=== PATIENT | male | born 1950 | race Caucasian/White ===

== ENCOUNTER 2016-06-29 21:03 | Inpatient (IN) | payer MEDICARE ==
[~2016-06-29] VITALS: Ht 177.8 cm; Wt 87.9 kg
[2016-06-29 21:06] VITALS: BP 195/104; PULSE 89; RESP 16; O2SAT 97
--- NOTE | 2016-06-29 22:07 | ED.REPORT ---
HPI-Neurologic Deficit Date of Service Jun 29, 2016 ED Provider: MD Rodri This is a 65 year old male with a history of hypertension and DM presenting to the emergency department via EMS due to problem speaking that occurred just prior to arrival. Patient was eating dinner when he suddenly was unable to speak and had left arm numbness. This episode lasted approximately twenty seconds and was preceded by a "really bad" headache that is now resolved. Patient states he has been tapering off of his blood pressure medications and reports intermittent headaches in the last few days. Pt states the headache worsened significantly today which was followed by the episode. The headache resolved after the episode. Pt was at baseline after the episode. Pt reports some L eye pain at this time. He denies slurred speech or LOC. Pt denies headache, chest pain, nausea, vomiting, diaphoresis, numbness, tingling facial droop, or slurred speech at this time. No ASA today. Nursing Notes Stated Complaint: POSS STROKE Chief Complaint: Neuro Symptoms/ Deficits Nursing Notes Reviewed: Yes Allergies: Coded Allergies: morphine (Verified Allergy, Intermediate, 06/29/16) General Time Seen by Provider: 22:13 Chief Complaint Numbness arm... (Left) Hx Obtained From: Patient Arrived By: Walk-in Sudden in Onset?: Yes Symptom Duration: Since onset Severity: Current: No pain currently Pertinent Negative: Pt denies other symptoms Recent Healthcare: No recent doctor visit, No recent hospitalization Similar Sx Previous: No Risk Factors NIH Stroke Scale Level of Consciousness: Alert and responsive (0) Ask Month & Age: Both questions right (0) Open/Close Eyes/Hand Towerman: Performs both tasks (0) Horizontal EO Movements: None (0) Visual Contreras: No visual loss (0) Facial Palsy: Normal symmetry (0) Right Arm Motor Drift (10s): No drift 10 sec (0) Left Arm Motor Drift (10s): No drift 10 sec (0) Right Leg Motor Drift (5s): No drift 5 sec (0) Left Leg Motor Drift (5s): No drift 5 sec (0) Limb Ataxia FNF/Heel-Kaplan: No ataxia (0) Sensation (Arms/Legs/Face): No sensory loss (0) Language Aphasia: No aphasia, normal (0) Dysarthria: No dysarthria, normal (0) Extinction/Inattention: No exctinct/inattent (0) NIHSS Score: 0 Time NIHSS Performed: 22:23 Date NIHSS Performed: Jun 29, 2016 Past Medical History Past Medical History Reports: Hypertension Ambulatory Status Independent Review of Systems Constitutional: Denies: Chills, Fever Respiratory: Denies: Non-productive cough, Shortness of breath Cardiovascular: Denies: Chest pain GI: Denies: Nausea, Vomiting Neurologic: Reports: Headache, Numbness, Unable to speak Complete sys rev & neg: except as marked. Physical Exam Initial Vital Signs Vital Signs (First) Date Time Temp Pulse Resp B/P Pulse Ox O2 Delivery O2 Flow Rate FiO2 06/29/16 21:06 37 89 16 195/104 97 Room Air Initial VS: Reviewed ENT: Mucous membranes moist, Conjunctiva normal, No scleral icterus Neck: Supple, Non-tender, Full range of motion Abdomen / GI: Soft, Non-tender, No guarding, No rebound, No distention Extremities: Vascular intact, Neuro intact, No swelling, No tenderness Skin: Warm, Dry, No cyanosis Psychiatric: Mood/affect normal, Behavior normal, Normal thought content General/Constitutional: Awake, Alert Head / Eyes: Normocephalic, PERRL, EOMI, No nystagmus Respiratory / Chest: Breath sounds NL, Breath sounds = bilat, No respiratory distress, No rales, No rhonchi, No wheezing Cardiovascular: Heart rate NL, Regular rhythm, Heart sounds NL, Peripheral circulation NL Neurologic: Oriented X3, Speech NL, No motor deficits, No sensory deficits, CN II - XII intact, Reflexes equal bilat, Cerebellar NL Interpretation & Diagnostics CT HEAD IMPRESSION: No acute intracranial findings. Radiologist: Rodri Armas MD Lab Results Interpretation Result Diagram: 06/29/16 2217 06/29/16 2217 Test 06/29/16 22:17 White Blood Count 5.3th/mm3 (3.8-10.1) Red Blood Count 5.02mil/mm3 (4.40-5.80) Hemoglobin 15.6g/dL (13.8-17.2) Hematocrit 45.6% (41.0-50.0) Mean Corpuscular Volume 90.8fL (81-100) Mean Corpuscular Hemoglobin 31.1pg (27.0-35.0) Mean Corpuscular Hemoglobin Concent 34.2% (32.0-37.0) Red Cell Distribution Width 12.1% (12.3-15.4) Platelet Count 311bil/L (150-400) Neutrophils (%) (Auto) 55.5% (40-74) Lymphocytes (%) (Auto) 27.6% (14-46) Monocytes (%) (Auto) 14.2% (4-12) Eosinophils (%) (Auto) 1.9% (0-5) Basophils (%) (Auto) 0.6% (0-3) Prothrombin Time 10.2sec (8.1-12.5) Prothromb Time International Ratio 0.95ratio Activated Partial Thromboplast Time 25.8sec (22.8-33.0) Sodium Level 136mEq/L (134-144) Potassium Level 3.5mEq/L (3.5-5.2) Chloride Level 95mEq/L (97-108) Carbon Dioxide Level 23mmol/L (18-29) Blood Urea Nitrogen 10mg/dL (8-27) Creatinine 0.78mg/dL (0.76-1.27) Estimat Glomerular Filtration Rate 106mL/min (>59) Glucose Level 112mg/dL (60-99) Calcium Level 9.8mg/dL (8.5-10.1) Magnesium Level 1.9mg/dL (1.6-2.6) Total Bilirubin 0.5mg/dL (0.0-1.2) Aspartate Amino Transf (AST/SGOT) 22U/L (0-50) Alanine Aminotransferase (ALT/SGPT) 18U/L (0-44) Alkaline Phosphatase 65U/L (25-160) Troponin T 0.010ug/L (0.0-0.011) Total Protein 7.9g/dL (6.4-8.4) Albumin 4.4g/dL (3.4-5.0) Hold Price Top Tube Received (Received) ECG Interpretation ECG Interpretation: NSR at a rate of [address] elevation Flattened t-wave in lead 3 T-wave inversion in AVR AND V1 Time: 22:23 Interpreted by: ED physician Re-Eval/Medical Decision Med Decision/Clinical Course 65-year-old male with past medical history of hypertension who is not currently taking medications here with headache and transient dysphagia and left arm numbness and weakness. Differential diagnosis includes but is not limited to TIA versus electrolyte abnormality versus hypertensive emergency versus stroke. Patient's symptoms have completely resolved, so I do not feel he is having a stroke. CT head is normal. Electrolytes are normal. Patient is hypertensive, however, given his normal CT head, I feel it is safer to allow for permissive hypertension. I offered him outpatient follow-up for TIA, however, he has elected to stay inpatient and have workup in-house. He has been accepted by the hospitalist. Re-Evaluation/Progress : Time of Eval: 23:29 Re-Evaluation/Progress Note: Discussed lab, imaging results and plan for admission. All questions addressed. Consultation : Referral / Consult Name: Radha Mckeon DO Consulted With: Hospitalist Call Returned at: 00:18 Retanned Leather Roller: Accepts admit Counseled Regarding: Diagnosis, Lab results, Need for follow-up, Need for admission Discharge & Departure Impression: Primary Impression: TIA (transient ischemic attack) Transient cerebral ischemia type: unspecified Qualified Code: G45.9 - Transient cerebral ischemic attack, unspecified Disposition: ADMITTED TO HOSPITAL Discharge Condition All VS Reviewed: Yes Condition: Stable Scribe Attestation Portions of this note were transcribed by Ranjeet Rodrigues. I, Dr. Mace personally performed the history, physical exam and medical decision-making; I reviewed and confirmed the accuracy of the information in the transcribed note. Signed by: mindy Redman. 06/29/2016, 03:00. Kylie Mace MD Jun 29, 2016 22:07 RANJEET RODRIGUES Jun 29, 2016 22:22
[2016-06-29 22:31] LABS: Mean Corpuscular Hemoglobin 31.1 pg (27.0-35.0); Mean Corpuscular Volume 90.8 fL (81-100); NEUTROPHILS % (AUTO) 55.5 % (40-74); Platelet Count 311 bil/L (150-400)
[2016-06-29 22:32] LABS: BASOPHILS % (AUTO) 0.6 % (0-3); EOSINOPHILS % (AUTO) 1.9 % (0-5); MONOCYTES % (AUTO) 14.2 % (4-12)
[2016-06-29 22:52] LABS: INR 0.95 ratio
[2016-06-29 23:02] LABS: Magnesium 1.9 mg/dL (1.6-2.6); TROPONIN T 0.01 ug/L (0.0-0.011)
[2016-06-30] VITALS (10 sets, daily range): BP systolic 166–199; BP diastolic 76–109; PULSE 65–88; RESP 15–19; O2SAT 96–98
[2016-06-30] MEDS ORDERED: Alum-Mag Hydrox-Simeth 30 mL Suspension PO PRN (01:10)
[2016-06-30] MEDS ORDERED: Polyethylene Glycol (PEG) 17 Gm Powder PO PRN (01:10)
[2016-06-30] MEDS ORDERED: Ondansetron 2 mg/mL 2 mL Inj IVPUSH PRN (01:10)
--- NOTE | 2016-06-30 01:20 | PCM.HPMED ---
Subjective Date of Service Jun 30, 2016 Primary Provider: Admitting Physician: Radha Mckeon DO Primary Care Physician: Verónica Attending Physician: Radha Mckeon DO Admit Status: From the Emergency Department Chief Complaint: Numbness of left arm, inability to speak. History of Present Illness: 65 y/o M with a history of HTN and pre-diabetes who presented to the ED with the complaint of numbness in his left arm and inability to speak while having dinner with his , just prior to arrival. He denies similar symptoms in the past and states that the episode lasted less than 30seconds and was preceded by a severe headache. He states that he has been under a lot of stress lately due to job changes and recent of his son. He states that his son was shot just before [place], after which he reports drinking heavily and 'staying drunk' for a couple of months. He has stopped drinking heavily, made dietary and lifestyle changes and he states that his blood pressure improved. This led him to self-discontinued his anti-hypertensive medication as well as his metformin. He reports home blood pressure readings consistently in the 130s systolic and 80s-90s diastolic for a couple of weeks. He only resumed his medication about 2 weeks ago when he noticed his blood pressure starting climbing again. He states that he was only borderline diabetic so he stopped his metformin as well. He does not remember when his A1c was last checked. Of note, several weeks ago he states that he developed severe nausea and generally felt terrible upon waking one morning. This episode was accompanied by a headache and he reports intermittent headaches since that time. In the ED: NIHSS zero, vitals 37.0C, BP 195/104, pulse 89, RR 16, O2 sats 97% on room air. Labs: wbc 5.3, hgb 15.6, hct 45.6, plts 311. Sodium 136, potassium 3.5, chloride 95, bicarb 23, BUN 10, creatinine 0.78, serum glucose 112. ECG showing normal sinus rhythm with a rate of 77, no ST elevation, and non- specific Twave changes. Troponin is negative x1. CT head no acute intracranial findings. Review of Systems: A comprehensive review of systems was conducted with the patient and found to be negative except as above in the History of Present Illness. Allergies Coded Allergies: morphine (Verified Allergy, Intermediate, 06/29/16) Home Medications Med reconciliation pending at time of admission. PMH Hypertension Pre-diabetes Surgical History Inguinal hernia repair x2 Back surgery Family History Father- at age 79. hx of 'enlarged heart, diabetes and pancreatic cancer. 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 Reports period of heavy drinking for 2-3months, following his sons last February. 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 Lives in [place], lives in [place]. Exam Vital Signs Vital Sign - Last Date Time Temp Pulse Resp B/P Pulse Ox O2 Delivery O2 Flow Rate FiO2 06/29/16 21:06 37 89 16 195/104 97 Room Air Exam General: No acute distress, well-developed, well-nourished, appropriately interactive HEENT: Normocephalic, atraumatic. External ears without defect. PERRLA, Anicteric sclerae, moist conjunctivae, and no lid lag. Neck: Supple, nontender. No jugular venous distension. No bruits. Cardiovascular: Regular rate and rhythm with no murmurs, rubs, or gallops appreciated Pulmonary: Clear to auscultation bilaterally with no crackles, wheezes, or rhonchi. Abdomen: Bowel tones present. Soft, nontender, nondistended. No hepatosplenomegaly or masses Extremities: No clubbing, cyanosis, edema, or lymphadenopathy appreciated. Skin: Normal temperature, turgor, and texture; no rash or ulcerations. Neurological: CN II-XII grossly intact, no focal motor/sensory deficits. Normal muscle strength, tone, and bulk. Psychiatric: Normal mood and affect. Alert and oriented to person, place, and time. Lab and Diagnostics Labs Laboratory Tests Test 06/29/16 22:17 White Blood Count 5.3th/mm3 (3.8-10.1) Red Blood Count 5.02mil/mm3 (4.40-5.80) Hemoglobin 15.6g/dL (13.8-17.2) Hematocrit 45.6% (41.0-50.0) Mean Corpuscular Volume 90.8fL (81-100) Mean Corpuscular Hemoglobin 31.1pg (27.0-35.0) Mean Corpuscular Hemoglobin Concent 34.2% (32.0-37.0) Red Cell Distribution Width 12.1% (12.3-15.4) Platelet Count 311bil/L (150-400) Neutrophils (%) (Auto) 55.5% (40-74) Lymphocytes (%) (Auto) 27.6% (14-46) Monocytes (%) (Auto) 14.2% (4-12) Eosinophils (%) (Auto) 1.9% (0-5) Basophils (%) (Auto) 0.6% (0-3) Prothrombin Time 10.2sec (8.1-12.5) Prothromb Time International Ratio 0.95ratio Activated Partial Thromboplast Time 25.8sec (22.8-33.0) Sodium Level 136mEq/L (134-144) Potassium Level 3.5mEq/L (3.5-5.2) Chloride Level 95mEq/L (97-108) Carbon Dioxide Level 23mmol/L (18-29) Blood Urea Nitrogen 10mg/dL (8-27) Creatinine 0.78mg/dL (0.76-1.27) Estimat Glomerular Filtration Rate 106mL/min (>59) Glucose Level 112mg/dL (60-99) Calcium Level 9.8mg/dL (8.5-10.1) Magnesium Level 1.9mg/dL (1.6-2.6) Total Bilirubin 0.5mg/dL (0.0-1.2) Aspartate Amino Transf (AST/SGOT) 22U/L (0-50) Alanine Aminotransferase (ALT/SGPT) 18U/L (0-44) Alkaline Phosphatase 65U/L (25-160) Troponin T 0.010ug/L (0.0-0.011) Total Protein 7.9g/dL (6.4-8.4) Albumin 4.4g/dL (3.4-5.0) Hold Price Top Tube Received (Received) Result Diagram: 06/29/16221606/29/162216 X-Rays, CTs and MRIs CT HEAD w/o contrast (final report, pending at time of admission) IMPRESSION: No acute intracranial findings. Radiologist: Rodri Armas MD Assessment & Plan 65 y/o M with a history of HTN and pre-diabetes who presented to the ED with the complaint of left arm numbness and transient inability to speak just prior to arrival. Admitted for further evaluation and management of TIA and hypertension. 1. TIA, present on admission. Improving -Hx of hypertension, self-discontinuation of BP meds, intermittent headaches for past several days. -Pt hypertensive at presentation, BP 195/104. Reports episode today preceded by more severe headache and lasted approx 20secs. -in the ED: CT head w/no acute intracranial findings, NIHSS 0, resolution of symptoms. -lipid panel pending, consider initiating statin pending results -permissive hypertension, treat only if > 220 systolic or 120 Diastolic -continue aspirin, 325mg 2. Hypertension, present on admission. Active. -BP significantly elevated at presentation, 195/104 with pulse 89. -ECG showing NSR, rate 77, no ST elevation and non-specific T-wave changes. -Troponin neg x1 -permissive hypertension due to #1. 3. Hx of pre-diabetes, present on admission. Ongoing - last HbA1c unknown. Pt reports self discontinued of metformin. - HbA1c pending PRN: Acetaminophen-fever/headache/mild/moderate pain Antiemetics, as needed Bowel regimen, as needed. Disposition: Patient is admitted under observation status with expected length of stay less than 2 midnights due to severity of presenting symptoms and risk of adverse event. Pain Evaluation: Adequate Pain Control VTE Prophylaxis Indicated: Meets Criteria for Anticoag Therapy VTE Prophylaxis: Sub-Q Heparin (Unfractionated) Resuscitation Status: CPR: Attempt Resuscitation Attending Statement The patient was seen and examined together with house staff on 06/30/2016 and I agree with the history, exam and plan as outlined in the note above. Sofia Ray DO Jun 30, 2016 01:20 Radha Mckeon DO Jun 30, 2016 04:45 Sofia Ray DO Jun 30, 2016 01:20 Disposition: Patient is admitted under observation status with expected length of stay less than 2 midnights due to severity of presenting symptoms and risk of adverse event. Pain Evaluation: Adequate Pain Control VTE Prophylaxis Indicated: Meets Criteria for Anticoag Therapy VTE Prophylaxis: Sub-Q Heparin (Unfractionated) BeSofia espitia DO Jun 30, 2016 01:20 PRN: Acetaminophen-fever/headache/mild/moderate pain Antiemetics, as needed Bowel regimen, as needed. Disposition: Patient is admitted under observation status with expected length of stay less than 2 midnights due to severity of presenting symptoms and risk of adverse event. Pain Evaluation: Adequate Pain Control VTE Prophylaxis Indicated: Meets Criteria for Anticoag Therapy VTE Prophylaxis: Sub-Q Heparin (Unfractionated) Sofia Ray DO Jun 30, 2016 01:20 CODE STATUS: FEN: IVF: GI Prophylaxis: DVT Prophylaxis: Sub-q Heparin, 5,000units Q8h PRN: Acetaminophen-fever/headache/mild/moderate pain Antiemetics, as needed Bowel regimen, as needed. Disposition: Patient is admitted under observation status with expected length of stay less than 2 midnights due to severity of presenting symptoms and risk of adverse event. Sofia Ray DO Jun 30, 2016 01:20
[2016-06-30] MEDS ORDERED: OXYC1TAB24 PO (02:17)
--- NOTE | 2016-06-30 06:42 | NUR ---
Admit Patient arrived from ED at 0130. Patient A&OX3.Report received from Zulay STEVENS. Vitals stable. Patient up independent in room. Stable on feet. Patient C/O headache.
--- NOTE | 2016-06-30 07:55 | NUR ---
Off Unit Patient off floor to MRI via W/C.
--- NOTE | 2016-06-30 08:04 | DRSVH ---
PROCEDURE: CT BRAIN WITHOUT CONTRAST ([id number]) INDICATIONS: TIA TECHNIQUE: Noncontrast 4.5 mm thick angled axial sections acquired from the foramen magnum to the vertex, with c oronal reformats. COMPARISON: None. FINDINGS: Image quality: Excellent. CSF spaces: Basal cisterns are patent. No extra-axial fluid collections. The ventricles are symmet tete in size and shape. Brain: No intracranial bleeds or masses. There is mild cerebral volume loss for age, with resultant ventricular and sulcal prominence. There are mild periventricular and deep white matter chronic sma ll vessel ischemic changes. There is intracranial internal carotid artery atherosclerosis. Skull and face: Calvarium and visualized facial bones appear intact, without suspicious lesions. Sinuses: Visualized sinuses and mastoids are clear. IMPRESSION: 1. No acute intracranial abnormalities. 2. Mild cerebral volume loss and chronic microvascular ischemic changes. No significant discrepancy with the promotions executive producer radiology preliminary report. Dictated by: Maldonado Fontenot M.D. on 06/30/2016 at 8:02 Approved by: Maldonado Fontenot M.D. on 06/30/2016 at 8:02
--- NOTE | 2016-06-30 08:23 | NUR ---
Back on Unit Patient back on floor from MRI via W/C.
[2016-06-30] MEDS: Heparin 5,000 Unit/mL Inj SUBQ SCH ×2 (08:32→16:45)
--- NOTE | 2016-06-30 08:41 | DRSVH ---
PROCEDURE: MRI BRAIN WITHOUT CONTRAST ([id number]) INDICATIONS: TIA, transient episode of numbness in left arm and inability to speak TECHNIQUE: Non-contrast axial T1 spin echo, axial T2 fast spin echo, sagittal and axial FLAIR, coronal T2 fast s pin echo, axial gradient echo, axial diffusion and ADC through the brain. COMPARISON: None. FINDINGS: Image quality: Excellent. CSF spaces: Ventricles appear symmetric in size and shape. Basal cisterns are patent. No extra-axi al fluid collections. Brain: No intracranial bleeds or mass effects. There is cerebral volume loss for age. There are mi ld periventricular and deep white matter chronic small vessel ischemic changes. Brainstem appears no rmal. Small, punctate focus of restricted diffusion noted in the posterior right frontal lobe compati ble with acute infarct. No chronic ischemic insults. Normal intravascular flow voids are present. Skull and face: Calvarial bone marrow is normal in signal. Orbits are normal. Sinuses: Sinuses are clear. Fluid signal noted in the right mastoid air cells. IMPRESSION: 1. Small, acute, lacunar infarct involving the posterior right frontal lobe. 2. Mild, diffuse volume loss. 3. Mild periventricular and subcortical white matter chronic microvascular ischemic changes. 4. No intracranial hemorrhage. 5. Fluid signal in the right mastoid air cells. Please correlate with physical findings to differenti ate serous fluid from an inflammatory process. Dictated by: Radha Davila MD, PhD on 06/30/2016 at 8:30 Approved by: Radha Davila MD, PhD on 06/30/2016 at 8:38
[2016-06-30] MEDS ORDERED: LOSA1TAB69 PO (09:31)
--- NOTE | 2016-06-30 10:42 | NUR ---
Silas quispe MD Notified MRI report available. Also, requested a PT consult. Awaiting response.
--- NOTE | 2016-06-30 10:47 | NUR ---
Swallowing and Cognitive Evaluations completed. Please go to "Notes" then click on "Assessments and Notes" (bottom left corner of screen). Then select appropriate discipline tab on top of screen.
--- NOTE | 2016-06-30 11:12 | NUR ---
Case Management: JORGE given and explained to pt. Erna TRUJILLO RN
--- NOTE | 2016-06-30 11:30 | DRSVH ---
Formerly [facility] [address] [place] [address] Echocardiogram Report Name: BK MONTEZ DStudy Date: 06/30/2016 Height: 70 in Hospital Exam Location: [facility] Weight: 186 lb Gender: Male BSA: 2.0 m2 : 1950 Age: 65 yrs BP: 166/87 mmHg Reason For Study: TIA History: Hypertension Ordering Physician: Performed By: [facility] Interpretation Summary The left ventricle is normal in size. The ejection fraction is estimated to be 60-65%. There is no LV thrombus. The right ventricle is at the upper limits of normal in size. The right ventricular systolic function is normal. There is discrete calcified nodular thickening of the right and non coronary cusp. No aortic regurgitation is present.There is no aortic valve stenosis. There is trace tricuspid regurgitation. Right ventricular systolic pressure is estimated to be 25 mmHg plus the clinically estimated CVP which cannot be estimated on this exam. The ascending aorta is mildly enlarged. The aortic arch is mild-moderately enlarged. Procedure: A two-dimensional transthoracic echocardiogram with color flow and Doppler was performed. The study quality was technically adequate. The subcostal views were difficult to obtain and are suboptimal in quality. There is no prior echocardiogram noted for this patient. The patient was in normal sinus rhythm during the exam. Left Ventricle: The left ventricle is normal in size. There is mild concentric left ventricular hypertrophy. Proximal septal thickening is noted. There is no echo evidence for significant left ventricular outflow tract obstruction. There is no thrombus. The ejection fraction is estimated to be 60-65%. There are no focal wall motion abnormalities. Spectral Doppler of the mitral valve is reversed, with an E/A wave ratio < 1.0. Right Ventricle: The right ventricle is at the upper limits of normal in size. The right ventricular systolic function is normal. Atria: Both atria are normal in size. There is no Doppler evidence for an interatrial shunt. Mitral Valve: There is mild mitral annular calcification. The mitral valve leaflets are slightly calcified. There is trace mitral regurgitation. Aortic Valve: The aortic valve is mildly calcified. The aortic valve is trileaflet. There is discrete calcified nodular thickening of the right and non coronary cusp. There is no aortic valve stenosis. No aortic regurgitation is present. Tricuspid Valve: The tricuspid valve is not well visualized, but is grossly normal. Right ventricular systolic pressure is estimated to be 25 mmHg plus the clinically estimated CVP which cannot be estimated on this exam. There is trace tricuspid regurgitation. Pulmonic Valve: The pulmonic valve is not well seen, but is grossly normal. There is no pulmonic valvular regurgitation. Great Vessels: The aortic root is normal size. The ascending aorta is mildly enlarged. The aortic arch is mild-moderately enlarged. The IVC has a measurement of 20 mm. Inspiratory collapse of the IVC is difficult to estimate given the limited visibility. Pericardium/ Pleura There is an anterior echo-free space consistent with a fat pad. There is no pericardial effusion. MMode/2D Measurements & Calculations LVIDd: 4.9 cm LA dimension: 4.2 cm RA long axis LVOT diam: 2.3 cm LVIDs: 2.9 cm Ao root diam FS: 40.4 % LA A2 area: 21.9 cm RA area EPSS: 0.81 cm LA A4 area: 17.5 cm Aortic Jxn: 3.1 cm IVSd: 1.4 cm LA length (vol) : 16.0 cm asc Aorta Diam LVPWd: 1.2 cm RA vol LA vol: 64.7 ml : 39.4 ml Ao Arch Diam (Prox LA vol index RA Trans): 3.8 cm : 19.4 mm2 IVC diam: 2.0 cm LV rodrigues. diameter/BSA LV sys. diameter/BSA RVD1 (basal) TAPSE: 2.4 cm (cm/m^2): 2.4 (cm/m^2): 1.4 Doppler Measurements & Calculations Ao V2 max MV E max grey MV E/A: 0.55 TR max grey : 141.9 cm/sec : 46.5 cm/sec Med Peak E' Grey : 248.6 cm/sec Ao max PG MV A max grey TR max PG : 8.1 mmHg : 84.6 cm/sec E/E' med: 10.9 : 24.7 mmHg Ao mean PG MV P1/2t: 78.8 msec Pulm A Revs Dur PA V2 max : 103.1 cm/sec LVOT Max Grey MV A dur: 0.12 sec PA mean PG : 92.6 cm/sec PA Accel Time MARANDA(I,D): 3.0 cm : 0.14 sec sev ratio MV dec time MV P1/2t max grey Ao V2 mean LV V1 max PG : 0.26 sec : 108.8 cm/sec MVA(P1/2t): 2.8 cm2 Ao V2 VTI: 27.7 cm LV V1 VTI MARANDA(V,D): 2.7 cm2 : 20.1 cm PA V2 mean MARANDA indexed to BSA Pulm A Revs Dur - MV A : 70.4 cm/sec (cm^2/m^2): 1.5 Dur: -0.01 msec Reading Physician:RUPALI
--- NOTE | 2016-06-30 11:52 | NUR ---
Evaluation completed. Please go to "Notes" then click on "Assessments and Notes" (bottom left corner of screen). Then select appropriate discipline tab on top of screen.
--- NOTE | 2016-06-30 12:23 | NUR ---
Case Management: IMM given and explained to pt. Erna TRUJILLORN
[2016-06-30] MEDS: DULoxetine 20 mg DR Capsule PO SCH (14:17)
--- NOTE | 2016-06-30 15:51 | NUR ---
Social Work-initial assessment/ readiness for discharge: Data:See initial assessment. Pt is a 65 y/o male who was admitted on 06/30/16 for TIA per H&P. Pt's insurance is [facility] and PCP is Dr. Chaney in [place]. EMR Reviewed. Pt's readmission score is 1. SW met with pt at bedside to discuss discharge planning, SW role explained. Pt is alert and oriented x3. Pt resides at home with his Sara Oliver [phone] in [place] where he remains independent with ADLs. Pt does not use any DME and drives. Pt has no HH or SNF history. Pt has no long-term care insurance or VA benefits. SW discussed DPOA/ advanced directive pt has not completed this paperwork, SW provided pt with copy. PT and ST have cleared pt for home. SW discussed PCP, pt states that he will be able to get into see his PCP and will be able to schedule an appointment himself. Pt declined any needs for SW assisting with this. SW provided pt with phone number and plan on white board in room. Pt's family to provide transport home. No anticipated discharge needs. SW will continue to follow if needs arise. Assessment:Pt who is independent at baseline. Plan:Pt to discharge home when medically stable via POV. No anticipated discharge needs. SW will continue to follow if needs arise. JODY Hayden Addendum: 06/30/16 at 1614 by ALEX SERRATO SS Amended: Links added.
[2016-06-30] MEDS: oxyCODONE-Acetamin 5-325 mg Tablet PO PRN ×2 (16:46→22:44)
--- NOTE | 2016-06-30 16:47 | NUR ---
Pain Patient reported 8/10 chronic pain. 1 tab Percocet given. Denies nausea at this time. Patient independent in the room. Call light and tray table within reach. Will continue to monitor patient hourly.
--- NOTE | 2016-06-30 20:39 | NUR ---
HTN Page out to MD for critical b/p of 199/109. Pt asymptomatic. Waiting for call back.
--- NOTE | 2016-06-30 20:45 | NUR ---
B/P Spoke with Dr Mckeon about b/p. Stroke parameter is 220/120. Will recheck b/p in one hour and call MD if still elevated.
[2016-07-01] VITALS (10 sets, daily range): BP systolic 157–204; BP diastolic 91–109; PULSE 66–78; RESP 14–20; O2SAT 71–98
[2016-07-01] MEDS: Heparin 5,000 Unit/mL Inj SUBQ SCH ×3 (01:12→17:02)
[2016-07-01] MEDS: oxyCODONE-Acetamin 5-325 mg Tablet PO PRN ×4 (01:13→18:22)
--- NOTE | 2016-07-01 07:00 | NUR ---
NOC PT b/p remains very hypertensive, but below stroke parameter. PT c/o h/a when b/p high. Tylenol and percocet are helpful with pain. PT up ad jose in room. PT is anxious at times. He has tremors felt fingertip to fingertip, was a little diaphoretic. Asked again about etoh intake and pt denies excessive drinking, but does drink wine every night. WIll CTM for possible etoh w/d. PT planning for d/c today, but is anxious about how elevated b/p has been. Reinforced stroke teaching about allowing adequate perfusion. Pt was a little reassured by this.
[2016-07-01] MEDS ORDERED: Labetalol 5 mg/mL 4 mL Inj IVPUSH ONE (07:20)
[2016-07-01 07:49] LABS: Mean Corpuscular Hemoglobin 31.1 pg (27.0-35.0); Mean Corpuscular Volume 87.5 fL (81-100)
[2016-07-01] MEDS: DULoxetine 20 mg DR Capsule PO SCH (08:16)
[2016-07-01] MEDS ORDERED: 0.9% Sodium Chloride 1,000 ML IV ONE (15:35)
--- NOTE | 2016-07-01 18:04 | PCM.PNMED ---
Subjective Date of Service Jul 01, 2016 Subjective Patient was seen and examined at bedside today. Patient denies any chest pain, shortness of breath, nausea, vomiting, diarrhea, headache Overnight events: Overnight the patient did have several hypertensive episodes and then nighttime attending was contacted no medications were given. Exam Vital Signs Vital Sign - Last Date Time Temp Pulse Resp B/P Pulse Ox O2 Delivery O2 Flow Rate FiO2 07/01/16 16:29 36.7 73 18 167/97 95 Room Air Intake and Output 06/30/16 06/30/16 07/01/16 Cumulative From/Thru 15:00 23:00 07:00 06/29/16 21:06 - 07/01/16 06:44 Intake Total 1836 ml 375 ml 2261 ml Output Total 800 ml 950 ml 1950 ml Balance 1036 ml -575 ml 311 ml Intake Oral 1836 ml 375 ml 2261 ml Output Urine Total 800 ml 950 ml 1950 ml # Bowel Movements 0 0 Exam Physical Exam: GEN: Patient was awake, alert, responding appropriately to questions HEENT: Pupils equal round and reactive to light, extraocular eye muscles intact , Neck soft supple, trachea midline, 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 CV: +S1/S2, regular rate and rhythm, no murmurs auscultated Respiratory: CTAB, no wheezes, rales, rhonchi GI: +bowel sounds x4, soft, compressible, nontender to palpation EXT: no clubbing, cyanosis, edema 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 Radiologist: Rodri Armas MD IMPRESSION: 1. Small, acute, lacunar infarct involving the posterior right frontal lobe. 2. Mild, diffuse volume loss. 3. Mild periventricular and subcortical white matter chronic microvascular ischemic changes. 4. No intracranial hemorrhage. 5. Fluid signal in the right mastoid air cells. Please correlate with physical findings to differentiate serous fluid from an inflammatory process. Dictated by: Radha Davila MD, PhD on 06/30/2016 at 8:30 Approved by: Radha Davila MD, PhD on 06/30/2016 at 8:38 Assessment & Plan 65 y/o M with a history of hypertension and pre-diabetes who presented to the ED with the complaint of left arm numbness and transient inability to speak just prior to arrival. Admitted for further evaluation and management of TIA and hypertension. CVA, present on admission. Improving -MRI shows a small acute lacunar infarct involving the posterior right frontal lobe -Lipid panel within normal limits - Start lisinopril 40 mg daily and Norvasc 10 mg daily, hydralazine 25 mg 3 times a day -Focus on blood pressure control -Continue aspirin 325 mg daily -Plavix 75 mg daily -Outpatient follow-up appointment with neurology Hypertension, present on admission. Active. -Blood pressure is improving currently 167/97 -Continue tight blood pressure control -Patient did receive a one-time dose of 20 IV labetalol - Start lisinopril 40 mg daily and Norvasc 10 mg daily, hydralazine 25 mg 3 times a day Hyponatremia -Sodium 128 -IV fluid bolus 1 L -Follow up in the morning Diabetes present on admission. Ongoing - last HbA1c unknown. Pt reports self discontinued of metformin. - HbA1c 6.3 -Restart metformin 500 mg twice a day Diet: Diabetic DVT prophylaxis: SCDs PRN: Acetaminophen-fever/headache/mild/moderate pain Antiemetics, as needed Bowel regimen, as needed. Disposition: At this time the patient's blood pressure still remains labile. Once the patient's blood pressure is stable he will be able to be discharged home and follow-up with neurology. VTE Prophylaxis: Sub-Q Heparin (Unfractionated) Resuscitation Status: CPR: Attempt Resuscitation Tatyana Mckenzie DO Jul 01, 2016 18:04
--- NOTE | 2016-07-01 18:41 | NUR ---
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 speech is clear and spontaneous, no swallowing problems.
--- NOTE | 2016-07-01 23:09 | NUR ---
Education Pt given stroke education booklet. Reviewed new medications (lipitor and hydralazine) and purpose of each of them. Pt verbalized understanding
[2016-07-02] VITALS (9 sets, daily range): BP systolic 127–159; BP diastolic 68–85; PULSE 65–79; RESP 20; O2SAT 96–98
[2016-07-02] MEDS: oxyCODONE-Acetamin 5-325 mg Tablet PO PRN ×3 (02:33→17:15)
[2016-07-02 07:57] LABS: Mean Corpuscular Hemoglobin 30.9 pg (27.0-35.0); Mean Corpuscular Volume 89.3 fL (81-100)
[2016-07-02] MEDS: DULoxetine 20 mg DR Capsule PO SCH (08:06)
[2016-07-02] MEDS ORDERED: 0.9% Sodium Chloride 1,000 ML IV ONE (09:10)
[2016-07-02] MEDS ORDERED: AMLO5TAB2 PO (15:22)
[2016-07-02] MEDS ORDERED: METF500T PO (15:22)
[2016-07-02] MEDS ORDERED: ASPI-973 PO (15:22)
[2016-07-02] MEDS ORDERED: CLOP75TA28 PO (15:22)
[2016-07-02] MEDS ORDERED: HYDR12.5 PO (15:22)
[2016-07-02] MEDS ORDERED: DULO20CA PO (15:22)
[2016-07-02] MEDS ORDERED: HYDR-3939 PO (15:22)
[2016-07-02] MEDS ORDERED: ATOR40TA69 PO (15:22)
[2016-07-02] MEDS ORDERED: LISI-567 PO (15:22)
--- NOTE | 2016-07-02 15:27 | PCM.DIMED ---
Discharge Instructions Date of Service Jul 02, 2016 Dates of Hospitalization Jun 30, 2016 at 00:57 Discharge Diagnosis Discharge Diagnosis CVA Hypertension Hyponatremia (resolved) Diabetes Medication Instructions You have been prescribed several new medications please take them daily and as prescribed. Please continue to monitor your blood pressure at home if you notice that your blood pressure is dropping with a systolic blood pressure (the top number) is consistently below 100 or if you are diastolic blood pressure ( the bottom number) is consistently below 60 then please decrease the hydralazine medication to once or twice a day. It is very important a follow- up with your primary care physician in regards to your blood pressure. This needs to be followed very closely. If her blood pressure once again becomes uncontrolled you could have another stroke. Diet Heart Healthy, Diabetic Activity No restrictions Call your provider Fever or Chills, Shortness of breath, Chest pain, Vomitting, Excessive diarrhea , Weakness (unilateral) Patient Instructions Follow-up with PCP in: 1 week (please follow-up with your primary care physician within one week if an appointment has not been made please call to schedule an appointment) Follow-up in: 3 weeks (You will need to follow up with a neurologist please call to schedule a follow-up appointment in regards to your stroke.) Tatyana Mckenzie DO Jul 02, 2016 15:27
--- NOTE | 2016-07-02 15:32 | PCM.DC.MED ---
Discharge Summary Date of Service Jul 02, 2016 Dates of Hospitalization Date of Hospital Admission Jun 30, 2016 at 00:57 Date of Discharge: Jul 02, 2016 Providers: Admitting Physician: Radha Mckeon DO Primary Care Physician: Nopcp Attending Physician: Radha Mckeon DO Diagnosis at Time of Discharge Diagnosis at Time of Discharge CVA Hypertension Hyponatremia (resolved) Diabetes Procedures XRay, CTs & MRIs CT HEAD w/o contrast (final report, pending at time of admission) IMPRESSION: No acute intracranial findings. Radiologist: Rodri Armas MD IMPRESSION: 1. Small, acute, lacunar infarct involving the posterior right frontal lobe. 2. Mild, diffuse volume loss. 3. Mild periventricular and subcortical white matter chronic microvascular ischemic changes. 4. No intracranial hemorrhage. 5. Fluid signal in the right mastoid air cells. Please correlate with physical findings to differentiate serous fluid from an inflammatory process. Dictated by: Radha Davila MD, PhD on 06/30/2016 at 8:30 Approved by: Radha Davila MD, PhD on 06/30/2016 at 8:38 PROCEDURE: MRI BRAIN WITHOUT CONTRAST ([id number]) IMPRESSION: 1. Small, acute, lacunar infarct involving the posterior right frontal lobe. 2. Mild, diffuse volume loss. 3. Mild periventricular and subcortical white matter chronic microvascular ischemic changes. 4. No intracranial hemorrhage. 5. Fluid signal in the right mastoid air cells. Please correlate with physical findings to differentiate serous fluid from an inflammatory process. Dictated by: Radha Davila MD, PhD on 06/30/2016 at 8:30 Approved by: Radha Davila MD, PhD on 06/30/2016 at 8:38 Brief History 65 y/o M with a history of HTN and pre-diabetes who presented to the ED with the complaint of numbness in his left arm and inability to speak while having dinner with his , just prior to arrival. He denies similar symptoms in the past and states that the episode lasted less than 30seconds and was preceded by a severe headache. He states that he has been under a lot of stress lately due to job changes and recent of his son. He states that his son was shot just before Tram, after which he reports drinking heavily and 'staying drunk' for a couple of months. He has stopped drinking heavily, made dietary and lifestyle changes and he states that his blood pressure improved. This led him to self-discontinued his anti-hypertensive medication as well as his metformin. He reports home blood pressure readings consistently in the 130s systolic and 80s-90s diastolic for a couple of weeks. He only resumed his medication about 2 weeks ago when he noticed his blood pressure starting climbing again. He states that he was only borderline diabetic so he stopped his metformin as well. He does not remember when his A1c was last checked. Of note, several weeks ago he states that he developed severe nausea and generally felt terrible upon waking one morning. This episode was accompanied by a headache and he reports intermittent headaches since that time. In the ED: NIHSS zero, vitals 37.0C, BP 195/104, pulse 89, RR 16, O2 sats 97% on room air. Labs: wbc 5.3, hgb 15.6, hct 45.6, plts 311. Sodium 136, potassium 3.5, chloride 95, bicarb 23, BUN 10, creatinine 0.78, serum glucose 112. ECG showing normal sinus rhythm with a rate of 77, no ST elevation, and non- specific Twave changes. Troponin is negative x1. CT head no acute intracranial findings. Hospital Course 65 y/o M with a history of hypertension and pre-diabetes who presented to the ED with the complaint of left arm numbness and transient inability to speak just prior to arrival. Admitted for further evaluation and management of TIA and hypertension. The patient was admitted and found to have a CVA. The patient currently has no significant deficits. The patient does have a chronic right-sided Garner's palsy. The patient has been prescribed aspirin and Plavix to be taken daily. The patient's blood pressure has been difficult to control and he is being discharged home on lisinopril, hydrochlorothiazide, amlodipine, and hydralazine. The patient has been instructed that should his blood pressure dropped systolic below 100 or diastolic below 60 that he is to decrease the number of times that he takes hydralazine to 1-2 times a day. The patient has also been instructed to follow-up closely with his primary care physician to monitor his blood pressure. The patient has been initiated follow-up with neurology and appointment is currently being made for the patient. The patient is being discharged home in stable condition. CVA, present on admission. Improving -MRI shows a small acute lacunar infarct involving the posterior right frontal lobe -Lipid panel within normal limits - Start lisinopril 40 mg daily and Norvasc 10 mg daily, hydralazine 25 mg 3 times a day -Focus on blood pressure control -Continue aspirin 325 mg daily -Plavix 75 mg daily -Outpatient follow-up appointment with neurology Hypertension, present on admission. Active. -Blood pressure is improving currently 167/97 -Continue tight blood pressure control -Patient did receive a one-time dose of 20 IV labetalol - Start lisinopril 40 mg daily and Norvasc 10 mg daily, hydralazine 25 mg 3 times a day Hyponatremia -Sodium 128 -IV fluid bolus 1 L -Follow up in the morning Diabetes present on admission. Ongoing - last HbA1c unknown. Pt reports self discontinued of metformin. - HbA1c 6.3 -Restart metformin 500 mg twice a day Diet: Diabetic DVT prophylaxis: SCDs PRN: Acetaminophen-fever/headache/mild/moderate pain Antiemetics, as needed Bowel regimen, as needed. Disposition: At this time the patient's blood pressure still remains labile. Once the patient's blood pressure is stable he will be able to be discharged home and follow-up with neurology. Exam Vital Signs (Last) Date Time Temp Pulse Resp B/P Pulse Ox O2 Delivery O2 Flow Rate FiO2 07/02/16 14:32 36.7 79 20 159/85 96 Room Air Exam Physical Exam: GEN: Patient was awake, alert, responding appropriately to questions HEENT: Pupils equal round and reactive to light, extraocular eye muscles intact , Neck soft supple, trachea midline, right-sided facial Garner's palsy chronic CV: +S1/S2, regular rate and rhythm, no murmurs auscultated Respiratory: CTAB, no wheezes, rales, rhonchi GI: +bowel sounds x4, soft, compressible, nontender to palpation EXT: no clubbing, cyanosis, edema Neuro: Cranial nerves II-XII grossly intact Psych: mood and affect were appropriate Test 06/29/16 22:17 06/30/16 04:45 07/02/16 07:45 Neutrophils (%) (Auto) 55.5% (40-74) Lymphocytes (%) (Auto) 27.6% (14-46) Monocytes (%) (Auto) 14.2% (4-12) Eosinophils (%) (Auto) 1.9% (0-5) Basophils (%) (Auto) 0.6% (0-3) Prothrombin Time 10.2sec (8.1-12.5) Prothromb Time International Ratio 0.95ratio Activated Partial Thromboplast Time 25.8sec (22.8-33.0) Magnesium Level 1.9mg/dL (1.6-2.6) Troponin T 0.010ug/L (0.0-0.011) Hold Price Top Tube Received (Received) Hemoglobin A1c 6.3% (4.8-5.6) Triglycerides Level 89mg/dL (0-149) Cholesterol Level 155mg/dL (100-199) LDL Cholesterol, Calculated 53.200mg/dL (0-99) VLDL Cholesterol 17.800mg/dL HDL Cholesterol 84mg/dL (>39) Cholesterol/HDL Ratio 1.85 (0.0-4.4) White Blood Count 4.6th/mm3 (3.8-10.1) Red Blood Count 4.76mil/mm3 (4.40-5.80) Hemoglobin 14.7g/dL (13.8-17.2) Hematocrit 42.5% (41.0-50.0) Mean Corpuscular Volume 89.3fL (81-100) Mean Corpuscular Hemoglobin 30.9pg (27.0-35.0) Mean Corpuscular Hemoglobin Concent 34.6% (32.0-37.0) Red Cell Distribution Width 11.6% (12.3-15.4) Platelet Count 265bil/L (150-400) Sodium Level 130mEq/L (134-144) Potassium Level 4.4mEq/L (3.5-5.2) Chloride Level 93mEq/L (97-108) Carbon Dioxide Level 25mmol/L (18-29) Blood Urea Nitrogen 5mg/dL (8-27) Creatinine 0.78mg/dL (0.76-1.27) Estimat Glomerular Filtration Rate 106mL/min (>59) Glucose Level 142mg/dL (60-99) Calcium Level 9.5mg/dL (8.5-10.1) Total Bilirubin 0.7mg/dL (0.0-1.2) Aspartate Amino Transf (AST/SGOT) 17U/L (0-50) Alanine Aminotransferase (ALT/SGPT) 15U/L (0-44) Alkaline Phosphatase 55U/L (25-160) Total Protein 6.4g/dL (6.4-8.4) Albumin 3.9g/dL (3.4-5.0) Discharge Medications Discharge Medications Amlodipine (Amlodipine) 5 Mg Tablet 10 MG PO DAILY Prescribed by: TATYANA MCKENZIE DO Aspirin (Aspirin) 81 Mg Tablet 81 MG PO DAILY Prescribed by: TATYANA MCKENZIE DO Atorvastatin Calcium (Atorvastatin Calcium) 40 Mg Tablet 40 MG PO HS Prescribed by: TATYANA MCKENZIE DO Clopidogrel (Clopidogrel) 75 Mg Tablet 75 MG PO DAILY Prescribed by: TATYANA MCKENZIE DO Duloxetine (Cymbalta) 20 Mg Capsule 20 MG PO DAILY Prescribed by: TATYANA MCKENZIE DO Hydralazine (Hydralazine) 25 Mg Tablet 25 MG PO TID Prescribed by: TATYANA MCKENZIE DO Hydrochlorothiazide (Hydrochlorothiazide) 12.5 Mg Capsule 12.5 MG PO DAILY Prescribed by: TATYANA MCKENZIE DO Lisinopril (Lisinopril) 20 Mg Tablet 40 MG PO DAILY Prescribed by: TATYANA MCKENZIE DO Metformin (Glucophage) 500 Mg Tablet 500 MG PO BIDWM Prescribed by: TATYANA MCKENZIE DO As needed oxyCODONE-Acetaminophen 5-325 mg (oxyCODONE-Acetaminophen 5-325 mg) 1 Each Tablet 1 TAB PO Q6H PRN PRN For Pain (Reported) Additional med instructions You have been prescribed several new medications please take them daily and as prescribed. Please continue to monitor your blood pressure at home if you notice that your blood pressure is dropping with a systolic blood pressure (the top number) is consistently below 100 or if you are diastolic blood pressure ( the bottom number) is consistently below 60 then please decrease the hydralazine medication to once or twice a day. It is very important a follow- up with your primary care physician in regards to your blood pressure. This needs to be followed very closely. If her blood pressure once again becomes uncontrolled you could have another stroke. Followup Plan Discharge Diet: Heart Healthy, Diabetic Discharge Activity: No restrictions Follow-up with PCP in: 3 weeks (An appointment has been made with Dr. Sagastume on July 28 with Neurology) Follow-up in: 1 week (You have an appointment with Dr. Blake on july 11) Time spent Greater than 35 minutes copies to: Stevan Blake Precious L DO Jul 02, 2016 15:32 Tatyana Mckenzie DO Jul 02, 2016 15:32
--- NOTE | 2016-07-02 15:46 | NUR ---
Social Work Note - Discharge: D/A: The Pt is a 65 y/o male that was admitted on 06/30/16 for TIA. The Pt is now ready for discharge, no other needs identified at this time. P: The Pt is now medically stable for discharge, Pt to discharge home via family POV transportation. The Pt to follow up with his PCP MD Chaney in one week and a Neurologist in three week. No other needs identified at this time. JODY Gabriel Admitting Clerk
--- NOTE | 2016-07-02 17:53 | NUR ---
Discharge Discharge education complete, pt denies questions. IV d/c'd in tact. All belongings sent with pt upon d/c. to drive pt home.
== END 2016-07-02 17:51 | disposition home or self-care (01) | DRG 65 ==
LOC: SED 21:03 → OBSVTOIN 06-30 00:57 → OSC 06-30 00:57
PROVIDERS: ADMIT Internal Medicine; ATTEND Internal Medicine
DX: I63.9 Cerebral infarction, unspecified (principal); E87.1 Hypo-osmolality and hyponatremia; R29.700 NIHSS score 0; I10 Essential (primary) hypertension; E11.9 Type 2 diabetes mellitus without complications; Z79.82 Long term (current) use of aspirin; G51.0 Bell's palsy; R40.2362 Coma scale, best motor response, obeys commands, at arrival to emergency department; R40.2142 Coma scale, eyes open, spontaneous, at arrival to emergency department; R40.2252 Coma scale, best verbal response, oriented, at arrival to emergency department